=== PATIENT | female | born 1990 | race Caucasian/White ===

== ENCOUNTER 2016-09-09 13:42 | Outpatient (CLI) | payer OTHER ==
[~2016-09-09] VITALS: Ht 160 cm; Wt 111.5 kg
[~2016-09-09 13:42] MED LIST: PRENTAB26 PO
[2016-09-09] MEDS ORDERED: FERR1TAB61 (16:45)
[2016-09-09 16:46] VITALS: Ht 160 cm; Wt 111.5 kg
== END 2016-09-09 17:35 | disposition home or self-care (01) ==
LOC: C.LD 13:42 → C.OPB 13:42 → EDSTATUS 09-15 13:39
PROVIDERS: ATTEND Obstetrics & Gynecology
DX: Z34.83 Encounter for supervision of other normal pregnancy, third trimester (principal)

== ENCOUNTER 2016-09-10 21:40 | Outpatient (CLI) | payer OTHER ==
[~2016-09-10] VITALS: Ht 160 cm; Wt 110.9 kg
[~2016-09-10 21:40] MED LIST changes: +FERR1TAB61
[2016-09-10 22:07] VITALS: Ht 160 cm; Wt 110.9 kg
[2016-09-10] MEDS ORDERED: NURSING VERBAL MED ORDER ONE (22:15)
[2016-09-10] MEDS ORDERED: LACTATED RINGER'S 1000ML 1,000 ML IV SCH (22:15)
[2016-09-11] MEDS ORDERED: LACTATED RINGER'S 1000ML 1,000 ML IV SCH (00:15)
--- NOTE | 2016-09-26 10:54 | EDITING REQUIRED CODING QUERY ---
DIAGNOSIS NEEDED To promote full compliance with coding requirements relating to patient care, physician participation is requested in all cases of certified professional coder uncertainty. Please assist us with the question(s) below: Coding Question: The patient received care in labor and delivery on 09/10/16 as noted within the record. Please document the diagnosis that is being addressed by the medication/treatment. Provider Response: DIAGNOSIS: Labor check Thank you for your assistance, Ariana Brown - Help Desk Rep
== END 2016-09-11 01:12 | disposition home or self-care (01) ==
LOC: C.LD 21:40 → C.OPB 21:40
PROVIDERS: ATTEND Obstetrics & Gynecology
DX: Z34.83 Encounter for supervision of other normal pregnancy, third trimester (principal); Z3A.39 39 weeks gestation of pregnancy

== ENCOUNTER 2016-09-11 12:12 | Inpatient (IN) | payer OTHER ==
[~2016-09-11] VITALS: Ht 160 cm; Wt 111.1 kg
[2016-09-11] MEDS ORDERED: OXYTOCIN 30 UNITS/500ML NSS IV ONE (12:27)
[2016-09-11] MEDS ORDERED: ACETAMINOPHEN/CODEINE 300/30MG TAB PO PRN ×2 (12:45)
[2016-09-11] MEDS ORDERED: OXYTOCIN 30 UNITS/500ML NSS IV PRN (12:45)
[2016-09-11] MEDS ORDERED: HYDROCORTISONE ACETATE 25 MG SUPP PR PRN (12:45)
[2016-09-11] MEDS ORDERED: DIPHTHERIA/TETANUS/PERTUSSIS 0.5 ML SYR/VIAL IM. ONE (12:45)
[2016-09-11] MEDS ORDERED: LANOLIN OINT EXT PRN ×2 (12:45)
[2016-09-11] MEDS ORDERED: ACETAMINOPHEN 325 MG TAB PO PRN (12:45)
[2016-09-11] MEDS ORDERED: SUPERCREAM 0.870 % 15GM JAR EXT PRN (12:45)
[2016-09-11] MEDS ORDERED: OXYCODONE/ACETAMINOPHEN 5-325 TAB PO PRN (12:45)
[2016-09-11] MEDS ORDERED: BENZOCAINE 20% AER SPR 82.5 GM CAN EXT PRN (12:45)
[2016-09-11] MEDS ORDERED: IBUPROFEN 600 MG TAB ONE (12:52)
[2016-09-11 14:18] VITALS: Ht 160 cm; Wt 111.1 kg
[2016-09-11 15:45] VITALS: BP 107/64; PULSE 97; TEMP 36.9; O2SAT 98
[2016-09-11] MEDS: IBUPROFEN 600 MG TAB PO PRN (18:59)
[2016-09-11 20:05] VITALS: BP 138/89; PULSE 89; TEMP 36.7
[2016-09-11] MEDS: DOCUSATE SODIUM 100 MG CAP PO SCH (20:11)
[2016-09-11 23:45] VITALS: BP 101/69; PULSE 95; TEMP 36.7
[2016-09-12] MEDS: IBUPROFEN 600 MG TAB PO PRN ×2 (02:31→23:53)
[2016-09-12 04:15] VITALS: BP 128/79; PULSE 90; TEMP 36.8
--- NOTE | 2016-09-12 06:48 | Progress Note ---
Subjective Sep 12, 2016. Subjective conversation w/ patient, physical exam Ambulation: ambulating normally Voiding: no voiding problems Passing Gas: Yes Diet Tolerance: Regular Diet Lochia: Small Feeding Type: Breast Feeding Review of Systems Constitutional: No chills, No fever, No sweats Respiratory: No cough, No shortness of breath Cardiac: No chest pain Objective Vital Signs Date Time Temp Pulse Resp B/P Pulse Ox O2 Delivery O2 Flow Rate FiO2 09/12/16 04:15 36.8 90 18 128/79 Room Air 09/11/16 23:45 Room Air 09/11/16 23:45 36.7 95 18 101/69 Room Air 09/11/16 20:05 36.7 89 18 138/89 Room Air 09/11/16 15:45 Room Air 09/11/16 15:45 36.9 97 20 107/64 98 Room Air Physical Exam General Appearance: WELL-APPEARING, NO APPARENT DISTRESS Respiratory/Chest: lungs clear, no accessory muscle use Cardiovascular: regular rate, rhythm, no murmur Fundus: Firm, Non-Tender, Relation to Umbilicus (at the umbilicud) Extremities: non-tender, no calf tenderness Laboratory Results Last 24 Hours Test 09/12/16 04:44 Assessment and Plan Problem List Medical Problems: (1) Gastroenteritis Status: Acute (2) Nausea vomiting and diarrhea Status: Acute Post- Day#: 1 Continue Routine Care: s/p at home Day 1 vitals reviewed and wnl hgb pending blood: O+, GBS+, Rubella immune patient doing well clinically encourage ambulation, encourage and monitor lochia CONTINUE ROUTINE POST CARE Resident Physician Supervision Note: I was present with Dr. Liu during the history and exam. I discussed the case with the resident and agree with the findings and plan as documented in the note. Any exceptions or clarifications are listed here: none, doing well, routine care. Documented By: Lili Malcolm
[2016-09-12 07:01] LABS: HEMATOCRIT 29.1 % (37-47)
[2016-09-12] MEDS: PRENATAL VITAMIN TAB PO SCH (07:58)
[2016-09-12] MEDS: DOCUSATE SODIUM 100 MG CAP PO SCH ×2 (07:58→20:00)
[2016-09-12 08:15] VITALS: BP 120/70; PULSE 75; TEMP 36.6; O2SAT 98
[2016-09-12 16:15] VITALS: BP 133/82; PULSE 87; TEMP 36.7; O2SAT 98
[2016-09-13 00:05] VITALS: BP 135/92; PULSE 95; TEMP 36.7; O2SAT 98
--- NOTE | 2016-09-13 07:22 | Progress Note ---
Subjective Sep 13, 2016. Subjective conversation w/ patient, physical exam Ambulation: ambulating normally Voiding: no voiding problems Passing Gas: Yes Diet Tolerance: Regular Diet Lochia: Small Feeding Type: Breast Feeding Review of Systems Constitutional: No chills, No fever, No sweats Respiratory: No cough, No shortness of breath Cardiac: No chest pain, No palpitations Objective Vital Signs Date Time Temp Pulse Resp B/P Pulse Ox O2 Delivery O2 Flow Rate FiO2 09/13/16 00:05 36.7 95 18 135/92 98 Room Air 09/13/16 00:05 98 Room Air 09/12/16 16:15 98 Room Air 09/12/16 16:15 36.7 87 20 133/82 98 Room Air 09/12/16 08:15 Room Air 09/12/16 08:15 36.6 75 18 120/70 98 Room Air Physical Exam General Appearance: WELL-APPEARING, NO APPARENT DISTRESS Respiratory/Chest: lungs clear, no accessory muscle use Cardiovascular: regular rate, rhythm, no murmur Fundus: Firm, Non-Tender, Relation to Umbilicus (at the umbilicus) Extremities: non-tender, no calf tenderness Assessment and Plan Problem List Medical Problems: (1) Gastroenteritis Status: Acute (2) Nausea vomiting and diarrhea Status: Acute Post- Day#: 2 Continue Routine Care: s/p at home Day 2 vitals reviewed and wnl hgb 9.7 yesterday blood: O+, GBS+, Rubella immune patient doing well clinically encourage ambulation, encourage and monitor lochia patient counselled on discharge instructions PATIENT TO BE DISCHARGED TODAY Resident Physician Supervision Note: I interviewed and examined the patient. Discussed with Dr. Liu and agree with findings and plan as documented in the note. Any exceptions or clarifications are listed here: [None] Documented By: Loyd Sheth
--- NOTE | 2016-09-13 07:24 | Discharge Instructions ---
Discharge Instructions Date of Service Sep 13, 2016. Admission Reason for Admission: Patient Delivered At Home Discharge Discharge Diagnosis / Problem: Spontaneous Vaginal Delivery Discharge Goals Goal(s): Routine recovery after delivery Medications Continue Dispensed Medications: supercream, dermaplast, tucks, lansinoh Activity Recommendations Activity Limitations: per Instructions/Follow-up section . Instructions / Follow-Up Instructions / Follow-Up ACTIVITY RECOMMENDATIONS: * Gradual return to full activity over the next 2-3 weeks. * No lifting - nothing heavier than baby over the next 2-3 weeks. * Do not engage in vigorous exercise, sexual activity or sports until cleared by your physician. * Do not drive or operate any motorized equipment until cleared by your physician. * You may shower/bathe daily. MEDICATIONS: For discomfort or pain, you may use Acetaminophen (Tylenol), Ibuprofen (Advil), or Naproxen (Aleve) following the package directions. For constipation you may use Colace following the package directions. BREAST CARE: If you are not breast feeding: * Wear a supportive bra 24 hours a day for one to two weeks. * Avoid stimulating your breasts and nipples as much as possible during the first few weeks after delivery. * When taking a shower, have the warm water hit your back, not breasts. * When your breasts feel full, apply ice packs. Usually three to four times a day helps ease the discomfort. * Take a mild pain medication (Tylenol / Motrin) when you are uncomfortable. If breast feeding: * Use breast milk to lubricate nipples. Lansinoh cream may be used for sore nipples. You do not need to remove cream prior to breast feeding. If using a different brand of cream, check the label for directions regarding removal of cream prior to nursing. * Wear a supportive bra. * If having problems with breasts or breast feeding, call a medical cost consultant or your health care provider. EPISIOTOMY CARE: After delivery, if you have an episiotomy (stitches), the following steps will ease discomfort and aid healing. * For the first 24 hours after delivery, place ice packs next to your episiotomy to help reduce swelling. * After the first 24 hour-period, sitz baths, either portable or in the tub, are suggested. A shower with a shower arm sprayed over the episiotomy may be comforting. * Chata care should be done after each voiding and bowel movement. Squirt warm water from a plastic bottle over the perineum (region of the body between the anus and urinary opening) and pat dry. * Use Dermoplast to ease discomfort. Shake container. [place] directly over the episiotomy. Place a Tucks on a clean sanitary pad next to your episiotomy. SPECIAL CARE INSTRUCTIONS: When you are discharged from the hospital, it is important for you to follow the instructions listed below: * During the first week at home, you should be able to care for yourself and your baby. In addition, the usual light household activities are encouraged. * Limit your activities to the way you feel. Do not try to clean the house or move furniture. Be sensible. * If you actively engage in sports and have done so up until the time of your delivery, you may resume these activities as soon as you feel able. This may take up to one month or even longer. Use good judgment. * Continue to take your vitamins for at least six weeks after the of your baby. * Your diet need not be limited unless you were on a special diet before your delivery. Breast-feeding mothers need around 2500 calories per day and at least 64-80 ounces of fluid per day (8 to 10 glasses). * You should eat foods from the four major food groups. Crash diets or fad diets are to be avoided. Eating lean meats, fresh fruits and vegetables, low-fat dairy products, high fiber foods and a regular exercise program, will help you get back to your pre- weight without putting your health at risk. * Constipation is sometimes a problem after delivery. Take a mild laxative as needed. If breast feeding, Milk of Magnesia is acceptable to use. You may use a suppository or Fleets enema if no episiotomy. * A daily shower or tub bath is suggested. Be sure to thoroughly and gently dry the perineum. * A bloody vaginal discharge will usually continue until around four weeks post . A small amount of bleeding may continue for as long as six weeks. Vaginal discharge changes from the bright red bleeding after delivery to pink then brownish and finally yellowish-pink before becoming white and disappearing. * Bleeding may increase with activity. Your first period may come in 4-8 weeks. If you are breast feeding, your period may be delayed even longer. * [place] (sex) can begin whenever both you and your partner feel comfortable and do not have any form of genital infection. It is recommended that you wait at least six weeks for internal and external healing to occur. If you have questions, please talk to your health care practitioner. A condom should be used to prevent infection and . * Foreplay, gentle intercourse and lubrication is very important the first several times to prevent pain. A water-based lubricant such as K-Y jelly or Astroglide may be used. * If you have RH negative blood and your baby is RH positive, you will receive RHOGAM by injection prior to discharge. The nurse will give you a card to keep with you that has the date and place that you received RHOGAM after delivery. * During your care, you had a Rubella screen done to check for the presence of rubella antibodies in your blood. If your test was negative, you will receive a Rubella vaccine prior to discharge. This vaccine may cause a fever, soreness at the injection site and flu-like symptoms. If these symptoms persist, notify your health care practitioner. is not advised for one month after a Rubella vaccine. * Verbalizes understanding of car seat law as reviewed with patient nursing. * Car Seat hand-out given and reviewed with patient by nursing. * Shaken baby information reviewed with patient by nursing. Call you doctor if: * Heavy bleeding (saturating several pads an hour) or passing clots the size of your fist. * A fever >101 degrees F (38.3 degrees C) on two occasions four hours apart and /or chills. * Unusual pain in the pelvic or vaginal areas. * "Baby Blues" lasting longer than two weeks. If you have any questions or concerns, call your health care practitioner at . FOLLOW UP VISIT: * Please call the office at to schedule a 6 week examination. It is important you keep this appointment. It is important for you to make arrangements for either yearly or twice yearly check-ups thereafter. Current Hospital Diet Patient's current hospital diet: Regular OB Diet Discharge Diet Recommended Diet: Regular Diet Pending Studies Studies pending at discharge: no Medical Emergencies . Who to Call and When: Medical Emergencies: If at any time you feel your situation is an emergency, please call [phone] immediately. . Non-Emergent Contact Non-Emergency issues call your: Primary Care Provider, Radio Program Director . . "Provider Documentation" section prepared by Henry Liu. VTE Core Measure Inpt VTE Proph given/why not?: Treatment not indicated
[2016-09-13] MEDS: DOCUSATE SODIUM 100 MG CAP PO SCH (08:00)
[2016-09-13 08:15] VITALS: BP 112/82; PULSE 71; TEMP 36.3; O2SAT 99
[2016-09-13] MEDS: PRENATAL VITAMIN TAB PO SCH ×2 (09:01→09:05)
[2016-09-13 10:40] VITALS: BP_DIAS 82; PULSE 71; TEMP 36.3
--- NOTE | 2016-09-18 11:36 | DISCHARGE SUMMARY ---
ADMISSION DIAGNOSES: at 39 and 3/7 weeks delivered at home. DISCHARGE DIAGNOSES: Same. HISTORY OF PRESENT ILLNESS: The patient is a 26-year-old white female G2, P1-0-0-1 with an intrauterine at 39 and 3/7 weeks. The patient comes in by ambulance having delivered at home. The patient was seen at 1:00 a.m. today after being evaluated for labor and was 3 cm with no change. She apparently got IV fluid because she was nauseated. She then notes that things may have changed around 6:00 a.m.; she started having loose stools. She went to the bathroom and had a loose stool and then 1 hour later went back to the bathroom and noted that the head with right there. She instructed her to call the ambulance. She delivered her baby. By the time they got there, the placenta had delivered as well. I examined the placenta and it looked to be intact. Put a shoe string around it and then a cord clamp. The patient notes she is feeling well at this point in time. For the rest of the patient's history and physical, please see the OB progress note. ASSESSMENT: This is an intrauterine at 39 weeks with accidental delivery at home. Placenta was delivered. She was given 10 mg of IM Pit and then she had a manual vaginal exam for some clot extruding from the vagina and cervix. Evaluation of the perineum revealed no tear and just some brush alvarado that were hemostatic around the clitoris and so no intervention was chosen. The patient's course was uncomplicated. She remained afebrile. She tolerated a regular diet. She was discharged home on postoperative day 2. Her discharge hemoglobin was 9.7.
== END 2016-09-13 10:45 | disposition home or self-care (01) | DRG 775 ==
LOC: C.LD 12:12 → C.OBG 15:41
PROVIDERS: ADMIT Obstetrics & Gynecology; ATTEND Obstetrics & Gynecology
PROC: 10E0XZZ Delivery of Products of Conception, External Approach (ICD-10-PCS; principal; 2016-09-11)
DX: Z39.0 Encounter for care and examination of mother immediately after delivery (principal); Z37.0 Single live birth; O99.825 Streptococcus B carrier state complicating the puerperium; O99.03 Anemia complicating the puerperium; D64.9 Anemia, unspecified; Z3A.39 39 weeks gestation of pregnancy